=== PATIENT | female | born 1980 | race Caucasian/White ===

== ENCOUNTER 2018-01-02 10:58 | Emergency (ER) | payer MEDICAID ==
[2018-01-02] MEDS: FAMOTIDINE 20 MG TAB PO (13:13)
[2018-01-02] MEDS: LIDOCAINE/MYLANTA 40 ML BTL PO (13:45)
== END 2018-01-02 14:42 | disposition home or self-care (01) ==
LOC: FTE 10:58
DX: K29.70 Gastritis, unspecified, without bleeding (principal)
CPT/HCPCS: 99283; Z7502